=== PATIENT | male | born 1995 ===

== ENCOUNTER 2020-09-09 19:29 | Outpatient (REF) | payer MEDICAID, SELFPAY ==
[2020-09-11 14:13] LABS: COVID-19 RT-PCR UVMMC Result Negative (Negative)
== END 2020-09-09 19:30 | disposition home or self-care (01) ==
LOC: LBN 19:29
PROVIDERS: Visit Provider Nurse Practitioner Family
DX: Z20.822 Contact with and (suspected) exposure to COVID-19 (principal); J06.9 Acute upper respiratory infection, unspecified
CPT/HCPCS: U0003